=== PATIENT | female | born 1985 | race Caucasian/White ===

== ENCOUNTER 2016-07-16 18:20 | Emergency (ER) | payer OTHER ==
[2016-07-16 18:00] LABS: INFLUENZA A NEG (NEG)
[2016-07-16 18:01] LABS: INFLUENZA B NEG (NEG)
[~2016-07-16 18:20] MED LIST: ABILIFY10 MG PO; AFRIN3 ML INH; ALBUTEROL17 GM; AMOXICILLIN; AMOXICILLIN PO; ANTIVERT PO; AZITHROMYCIN250 MG; BACTRIM DS TABL1 TA1 PO; BENTYL10 M1 PO; BENZONATATE; BP MED; BUSPIRONE HCL10 MG PO; CLONAZEPAM0.5 MG PO; COUGH & CHEST177 ML PO; COZAAR25 MG PO; CYANOCOBALAM1000 MCG PO; FIORICET1 TAB PO; FLONASE16 GM; FLUOXETINE HCL20 M1 PO; GIANVI 3 MG-0.1 EACH PO; HYDROCHLOROTHIA25 MG DOB; HYDROCHLOROTHIA25 MG PO; HYDROCHLOROTHIAZIDE PO; IBUPROFEN PO; IBUPROFEN800 MG PO; KEFLEX500 M2 PO; LEVOTHYROXINE PO; LEVOTHYROXINE300 MCG PO; LIOTHYRONINE S25 MCG PO; LOSARTAN POTASS25 MG PO; MACROBID100 M1; METOPROLOL PO; METOPROLOL SUCC50 MG PO; MULTIPLE VITAMI1 T11 PO; NAPROXEN PO; NAPROXEN SODIU550 MG PO; ONDANSETRON ODT4 MG PO; PANTOPRAZOLE SO40 MG PO; PHENERGAN PO; PHENERGAN25 M1 PO; PRENATAL1 TA1 PO; PRILOSEC20 M1 PO; PROTONIX PO; PROZAC PO; PROZAC40 MG PO; PYRIDIUM PO; REGLAN10 MG PO; ROBAXIN500 MG PO; SEROQUEL PO; SYNTHROID PO; TYLENOL #3 PO; TYLENOL/CODEINE1 TA1 PO; VIIBRYD PO; VITAMIN B-12; VITAMIN D; VITAMIN D31000 UNI1 PO; YASMIN 28 TABLE1 TAB PO; ZOFRAN ODT4 MG PO; ZOFRAN ODT4 MG SL; [UNRECOGNIZED DRUG - OTHER]
[2016-09-02] MEDS ORDERED: NEURONTIN (16:08)
[2016-09-02] MEDS ORDERED: VISTARIL (16:08)
== END 2016-07-16 18:44 | disposition home or self-care (01) ==
LOC: SED 18:20
PROVIDERS: Physician Assistant
DX: B34.9 Viral infection, unspecified (principal); R03.0 Elevated blood-pressure reading, without diagnosis of hypertension; G43.909 Migraine, unspecified, not intractable, without status migrainosus; Z85.850 Personal history of malignant neoplasm of thyroid; Z79.899 Other long term (current) drug therapy
CPT/HCPCS: 87804; 99283

== ENCOUNTER 2016-09-02 16:38 | Emergency (ER) | payer OTHER ==
[~2016-09-02 16:38] MED LIST changes: +NEURONTIN; +VISTARIL
[2016-09-02 16:49] LABS: BASOPHIL% 0.6 % (0-2.5); EOSINOPHIL# 0.1 X10e3 (0-0.7); EOSINOPHIL% 1.4 % (0.0-7.0); HEMOGLOBIN 15.1 gm/dL (12.0-16.0); LYMPHOCYTE# 2.5 X10e3 (1.0-3.5); LYMPHOCYTE% 32.7 % (17.0-45.0); MEAN CELL VOLUME 82.5 FL (83-96); MEAN CORPUSCULAR HEMOGLOBIN 28.3 PG (28-34); MEAN CORPUSCULAR HGB CONC 34.3 g/dL (30-36); MEAN PLATELET VOLUME 8.3 FL (6.5-11.5); MONOCYTE# 0.5 X10e3 (0-1.0); MONOCYTE% 6.4 % (3.0-12.0); NEUTROPHIL# 4.5 X10e3 (1.5-7.1); NEUTROPHIL% 58.9 % (40-75); PLATELET COUNT 402 X10e3 (140-420); RED BLOOD COUNT 5.33 X10e (3.90-5.30); RED CELL DISTRIBUTION WIDTH 13.9 % (11.0-15.5); WHITE BLOOD COUNT 7.7 X10e3 (4.0-10.5)
[2016-09-02 16:53] LABS: DIFF IND NO
[2016-09-02 17:10] LABS: ALBUMIN SERUM 4.7 g/dL (3.5-5.0); BILIRUBIN, DIRECT 0.1 mg/dL (0.0-0.2); BILIRUBIN,INDIRECT 0.5 mg/dL (0.0-0.9); BILIRUBIN,TOTAL 0.6 mg/dL (0.2-2.0); CALCIUM SERUM 9.4 mg/dL (8.4-10.2); GLOM FILT RATE Estimated 75.6 mL/min (>60); PROTEIN TOTAL SERUM 8.3 g/dL (6.0-8.3)
[2016-09-02 17:19] LABS: POTASSIUM 3.2 mmol/L (3.5-5.1)
[2016-09-02 17:43] LABS: URINE APPEARANCE HAZY; URINE BILIRUBIN NEG (NEG); URINE BLOOD 3+ (NEG); URINE COLOR YELLOW; URINE GLUCOSE NEG (NORM); URINE KETONE NEG (NEG); URINE LEUKOCYTE ESTERASE 1+ (NEG); URINE NITRATE NEG (NEG); URINE PROTEIN TRACE (NEG); URINE SPECIFIC GRAVITY 1.015 (1.003-1.035); URINE UROBILINOGEN 0.2 MG/DL (NORM)
[2016-09-02 17:48] LABS: MICRO INDICATED? YES; URINE SOURCE CLEAN CATCH
[2016-09-02 17:49] LABS: CULTURE INDICATED? YES; URINE RBC 50-100 /[HPF] (0-2); URINE WBC 25-50 /[HPF] (0-5)
[2016-09-02 17:50] LABS: URINE AMORPHOUS SEDIMENT AMORP URATES; URINE BACTERIA 2+ (NEG); URINE MUCUS PRESENT; URINE SQUAMOUS EPITHELIAL CELL MODERATE /[HPF]
== END 2016-09-02 18:09 | disposition home or self-care (01) ==
LOC: SED 16:38
PROVIDERS: Emergency Medicine
DX: R10.9 Unspecified abdominal pain (principal); R11.2 Nausea with vomiting, unspecified; I10 Essential (primary) hypertension; Z79.899 Other long term (current) drug therapy
CPT/HCPCS: 36415; 80048; 80076; 81003; 82150; 83690; 84703; 85025; 87086; 96361; 96374; 96375; 99284; J1885; J2405

== ENCOUNTER 2016-09-16 19:33 | Observation (INO) | payer OTHER ==
--- NOTE | ~2016-09-16 | DS ---
Unit #: [id number] #: [id number] Patient: MEY BRICENO [id number] [address] [address] [id number] I MR#: [id number] NAME: MEY BRICENO ROOM: [facility] Age: 31 Sex: F Admission Date: 09/17/2016 : 1985 Discharge Date: 09/17/2016 Attending Physician: Brenda Fry M.D. Primary Care Physician: Antony Suárez M.D. DISCHARGE SUMMARY PRINCIPAL DIAGNOSES 1. Intentional polysubstance overdose and suicide attempt; medications include Neurontin, benzodiazepines, lithium and Atarax. 2. Prolonged Q-T secondary to Neurontin and Atarax overdose. 3. Somnolence, medication induced. 4. Bipolar disorder, primarily depressed. 5. Hypertension. 6. Hypothyroidism, noncompliant with medications. 7. Morbid obesity. 8. Probable obstructive sleep apnea. DIAGNOSTIC STUDIES IMAGING: CT scan of the head without contrast on September 16, 2016 with no acute findings. Chest x-ray on September 16, 2016, again, without acute findings. CLINICAL HISTORY AND HOSPITAL COURSE Ms. Briceno is a 31-year-old female who was transferred from [facility] after somnolence. Patient presented there yesterday after admitting to her mother that she had been taking additional medications because she had been increasingly depressed. However, she was found to be significantly somnolent and was brought to our ER, at which time she was found to have a prolonged Q-T. She was admitted for further evaluation. Patient's medications were held. She was maintained on IV fluids and this morning, while still somewhat somnolent, has been walking to the bathroom and is able to eat. Repeat EKG from this morning is currently pending, but assuming her Q-T prolongation is now discharged to less than 500, I think she can be [facility] with further evaluation of medication dosing for her bipolar at that time. I will note patient's TSH was found to be elevated at approximately 20. However, her mother went home and counted her pills, and it does not appear the patient has been taking her Synthroid for at least the last 2 months. Will continue home dose of Synthroid, and she needs followup TSH in 6 weeks. DISCHARGE CONDITION Stable. DISCHARGE STATUS Discharge to [facility]. Unit #: [id number] #: [id number] Patient: MEY BRICENO DISCHARGE MEDICATIONS 1. Levothyroxine 300 mcg p.o. daily. 2. Protonix 40 mg daily. 3. Hydrochlorothiazide 25 mg daily. 4. Metoprolol succinate 50 mg daily. 5. Potassium chloride 20 mEq p.o. daily. DISCHARGE INSTRUCTIONS Patient was instructed to follow a low-calorie diet. She can increase her activity as tolerated. FOLLOW-UP 1. As an outpatient, patient should follow up with Dr. Suárez upon discharge from [facility]. She needs evaluation for obstructive sleep apnea and repeat TSH in 6 weeks. 2. She will follow up with psychiatry per their recommendations. NOTE: Time spent on discharge - 33 minutes. Dictated by... Brenda Fry M.D. ASHER/shital TD: 09/17/2016 11:27 JOB #: [id number] DISCHARGE SUMMARY Page 1 of 1 X Brenda Fry MD DISCHARGE SUMMARY
--- NOTE | ~2016-09-16 | EKG ---
PATIENT: MEY BRICENO UNIT #: [id number] Ventricular Rate: 91 BPM Atrial Rate: 91 BPM P-R Interval: 134 ms QRS Duration: 104 ms Q-T Interval: 416 ms QTC Calculation(Bezet): 511 ms P [place]: -7 degrees Calculated R [place]: -19 degrees Calculated T [place]: 23 degrees Diagnosis Line: Normal sinus rhythm Diagnosis Line: Nonspecific T wave abnormality Diagnosis Line: Prolonged QT Diagnosis Line: Abnormal ECG Diagnosis Line: When compared with ECG of 13-FEB-2016 23:48, Diagnosis Line: Nonspecific T wave abnormality now evident in Diagnosis Line: Anterior leads Diagnosis Line: Confirmed by SHAMEKA MENDEZ MD ([id number]) on 09/17/2016 Diagnosis Line: 10:39:52 AM INTERPRETING MD: VANESSA KOHLER
--- NOTE | ~2016-09-16 | EKG ---
PATIENT: MEY BRICENO UNIT #: [id number] Ventricular Rate: 92 BPM Atrial Rate: 92 BPM P-R Interval: 140 ms QRS Duration: 96 ms Q-T Interval: 310 ms QTC Calculation(Bezet): 383 ms P [place]: -7 degrees Calculated R [place]: -29 degrees Calculated T [place]: 36 degrees Diagnosis Line: Normal sinus rhythm Diagnosis Line: Nonspecific T wave abnormality Diagnosis Line: Otherwise normal ECG Diagnosis Line: When compared with ECG of 16-SEP-2016 22:55, Diagnosis Line: Nonspecific T wave abnormality now evident in Diagnosis Line: Lateral leads Diagnosis Line: QT has shortened Diagnosis Line: Confirmed by SHAMEKA MENDEZ MD ([id number]) on 09/17/2016 Diagnosis Line: 5:26:53 PM INTERPRETING MD: VANESSA KOHLER
--- NOTE | ~2016-09-16 | BMI ---
[facility] Nutrition Therapy DATE: 09/17/16 Patient: MEY BRICENO Physician: JEREMY Address: [address] [place] [address] Room/Bed: [address] [place] [address], Zip: [place] [address] Admit Date: 09/17/16 Date of : [birth year] Height: 5 7 Weight: 340 154.22 HIGH BMI NOTE: DX: 31 y/o female admitted with overdose ANTHROPOMETRICS: Ht: 67", Wt: 154.2 kg, BMI: 53 (Stage III obese) DIET: Clear liquids INTERVENTION: Restricted diet, meds/fluids per MD RECOMMENDATIONS: Once able advance to healthy heart diet as tolerated to promote a gradual weight loss towards a healthy BMI range. Respectfully, Tracey Sanchez RD, LD Food and Nutritional Services [facility] cc: client file
--- NOTE | ~2016-09-16 | CT71 ---
[facility] A Service [facility] RADIOLOGY TEXT RESULTS PATIENT: MEY BRICENO LOCATION: [facility] [address] : [birth year] UNIT #: [id number] AGE: [address]: Brenda Fry MD SEX: F ORDER DR: [id number] [facility] [address] [facility]. [place], [place] [address] [id number] E MR#: [id number] Acc #: [id number] NAME: MEY BRICENO : 1985 SEX: F STUDY DATE/TIME: 09/16/2016 21:02 UNIT: [facility] ROOM: STUDY DESCRIPTION: CT Head Wo Contrast Attending Physician: Chapo Curran D.O. Ordering Physician: Chapo Curran D.O. Primary Care Physician: Antony Suárez M.D. MEDICAL IMAGING REPORT This report is preliminary unless electronic signature is present EXAM CT head without contrast. INDICATION Headache today. PROCEDURE Unenhanced CT head. COMPARISON 10/21/[address] exam was performed with one or more of the following radiation dose reduction techniques: automatic exposure control, adjustment of mA and/or kV according to patient size, and iterative reconstruction. FINDINGS No acute hemorrhage, abnormal mass effect, extraaxial collection or hydrocephalus. No calvarial fracture, paranasal sinuses, mastoid air cells are clear. IMPRESSION No acute intracranial findings. Dictated by... Fernandez Mello M.D. THIS IS AN ELECTRONICALLY VERIFIED REPORT Fernandez Mello M.D. at 09/17/2016 10:39 AM SUNITHA/lee [facility] A Service [facility] RADIOLOGY TEXT RESULTS PATIENT: MEY BRICENO LOCATION: [facility] 326-01 : [birth year] UNIT #: [id number] AGE: [address]: Brenda Fry MD SEX: F ORDER DR: TD: 09/16/2016 22:02 JOB #: [id number] MEDICAL IMAGING REPORT Page 1 of 1 COPY
--- NOTE | ~2016-09-16 | CR72 ---
[facility] A Service of [facility] RADIOLOGY TEXT RESULTS PATIENT: MEY BRICENO LOCATION: [facility] : [birth year] UNIT #: [id number] AGE: [address]: Chapo Curran DO SEX: F ORDER DR: [id number] [facility] [address] [place], [place] [address] [id number] E MR#: [id number] Acc #: [id number] NAME: MEY BRICENO : 1985 SEX: F STUDY DATE/TIME: 09/16/2016 20:13 UNIT: [facility] ROOM: STUDY DESCRIPTION: CR Chest Single View Portable Attending Physician: Chapo Curran D.O. Ordering Physician: Ed Geo Orellana M.D. Primary Care Physician: Antony Suárez M.D. MEDICAL IMAGING REPORT This report is preliminary unless electronic signature is present EXAM Single view chest. INDICATIONS Overdose. Chest pain and headache. FINDINGS Single portable AP view of the chest compared to 11/14/2015. The heart and mediastinal contours normal. Lungs are clear. No pleural effusion. IMPRESSION No acute cardiopulmonary findings. Dictated by... Isra Garces M.D. THIS IS AN ELECTRONICALLY VERIFIED REPORT Isra Garces M.D. at 09/16/2016 9:47 PM ZAK/lee TD: 09/16/2016 21:15 JOB #: [id number] MEDICAL IMAGING REPORT Page 1 of 1 COPY
--- NOTE | ~2016-09-16 | HP ---
Unit #: [id number] #: [id number] Patient: MEY BRICENO [id number] [address] [address] [id number] I MR#: [id number] NAME: MEY BRICENO ROOM: [address] Age: 31 Sex: F Admission Date: 09/17/2016 : 1985 Attending Physician: Suzanne Castellon M.D. Primary Care Physician: Antony Suárez M.D. HISTORY AND PHYSICAL CHIEF COMPLAINT Intentional Neurontin and Atarax overdose. HISTORY This pleasant 31-year-old female with bipolar disorder, hypertension, hypothyroidism, is admitted following and overdose. The patient has been increasingly depressed. Her mother took her over to [facility] yesterday. The patient admitted to taking ten Neurontin 800 mg, ten Atarax 50 mg, and two extra lithium tablets. She was, therefore, sent to this facility where she is a bit somnolent, feeling somewhat nauseous and vertiginous. She also took 28 tablets of Klonopin over six days, 0.5 mg each. In our ER, she was bolused with saline, and referred for admission. She is on a 72 hour hold. EKG does show a prolonged QT interval. PAST MEDICAL HISTORY 1. Admission 02/2016 for intentional Klonopin and Abilify overdose. 2. Bipolar disorder. 3. Thyroid cancer and goiter, status post thyroidectomy. 4. Essential hypertension. 5. . 6. Tonsillectomy. 7. Lap band. ALLERGIES No known drug allergies. HOME MEDICATIONS 1. Hydrochlorothiazide 25 mg daily. 2. Klonopin 0.5 mg b.i.d. 3. Neurontin 800 mg q.i.d. 4. Toprol XL 50 mg daily. 5. [place] 150 mg t.i.d. 6. Klonopin 0.5 mg b.i.d. 7. Synthroid 0.3 mg daily. 8. Protonix 40 mg daily. 9. Losartan 25 mg daily. 10. Seroquel 200 mg in the morning and 400 mg in the evening. 11. Atarax 50 mg. FAMILY HISTORY Bipolar disorder and suicide. Unit #: [id number] #: [id number] Patient: MEY BRICENO SOCIAL HISTORY The patient is living with her grandmother. She is a lifelong nonsmoker, does not drink alcohol or use illicit drugs. Denies any possibility of . REVIEW OF SYSTEMS Notable for overdose, thyroid cancer, hypertension, bipolar disorder, above mentioned surgeries. All other systems were reviewed and otherwise negative. PHYSICAL EXAMINATION GENERAL APPEARANCE: Pleasant, obese, 31-year-old female, currently in no acute distress. Mildly somnolent. VITAL SIGNS: Temperature 97.6, pulse 105, respirations 19, blood pressure 112/93. O2 saturation is 97% on room air. HEENT: Eyes PERRLA. Extraocular muscles are intact. Pharynx is benign. NECK: Supple without adenopathy or thyromegaly. CHEST: Clear. CARDIAC: Normal S1 and S2 without S3, S4 or murmur. ABDOMEN: Bowel sounds are present. Nontender. There is a lap band in the epigastric region. Otherwise, no masses. No hepatosplenomegaly. EXTREMITIES: Without clubbing, cyanosis or edema. Pedal pulses are present. NEUROLOGIC: The patient is somnolent but arousable. Cranial nerves are intact. She has equal strength throughout. She is non-tremulous. DIAGNOSTIC STUDIES LABORATORY: Hematocrit 38.3, normal white count and platelet count. SMA-12 - normal. Acetaminophen, salicylate and alcohol levels are negligible. Urine tox screen positive for TCAs. IMAGING: Head CT - no acute disease. Chest x-ray - no acute disease. CARDIOVASCULAR: EKG - sinus rhythm, rate 100 with a prolonged QT interval. Nonspecific ST wave abnormalities. ASSESSMENT 1. Intentional overdose with Neurontin, Atarax and two extra lithium: QT interval is prolonged. Patient is somnolent. 2. Bipolar disorder: Patient is depressed. 3. Hypertension. 4. Hypothyroidism, status post thyroidectomy for thyroid cancer. PLANS 1. Hold sedating medicines. 2. Check lithium level. 3. IV fluids. 4. Recheck labs and EKG in the morning. 5. 72 hour hold. 6. Obtain TSH. 7. SCDs for DVT prophylaxis. 8. Transfer to [facility] when stable. Unit #: [id number] #: [id number] Patient: MEY BRICENO Dictated by Suzanne Castellon M.D. AML/df TD: 09/17/2016 05:00 JOB #: [id number] CC: Clifton Villarreal M.D. HISTORY AND PHYSICAL Page 1 of 1 X Suzanne Castellon MD X HISTORY AND PHYSICAL
--- NOTE | ~2016-09-16 | EKG ---
PATIENT: MEY BRICENO UNIT #: [id number] Ventricular Rate: 100 BPM Atrial Rate: 100 BPM P-R Interval: 132 ms QRS Duration: 98 ms Q-T Interval: 404 ms QTC Calculation(Bezet): 521 ms P [place]: -4 degrees Calculated R [place]: -22 degrees Calculated T [place]: 26 degrees Diagnosis Line: Normal sinus rhythm Diagnosis Line: Prolonged QT Diagnosis Line: Abnormal ECG Diagnosis Line: When compared with ECG of 16-SEP-2016 20:40, Diagnosis Line: (unconfirmed) Diagnosis Line: No significant change was found Diagnosis Line: Confirmed by SHAMEKA MENDEZ MD ([id number]) on 09/17/2016 Diagnosis Line: 10:40:40 AM INTERPRETING MD: VANESSA KOHLER
[2016-09-16 20:21] LABS: AMPHETAMINE NEG (NEG); BARBITURATES NEG (NEG); BENZODIAZEPINES NEG (NEG); COCAINE NEG (NEG); MARIJUANA NEG (NEG); OPIATES NEG (NEG); TRICYCLIC ANTIDEPRESSANTS POS (NEG); U METHADONE NEG (NEG)
[2016-09-16 20:51] LABS: BASOPHIL% 0.2 % (0-2.5); EOSINOPHIL# 0.3 X10e3 (0-0.7); EOSINOPHIL% 3.8 % (0.0-7.0); HEMATOCRIT 38.3 % (35.0-45.0); HEMOGLOBIN 12.7 gm/dL (12.0-16.0); MEAN CELL VOLUME 83.3 FL (83-96); MEAN CORPUSCULAR HEMOGLOBIN 27.6 PG (28-34); MEAN CORPUSCULAR HGB CONC 33.1 g/dL (30-36); MEAN PLATELET VOLUME 8.5 FL (6.5-11.5); MONOCYTE# 0.6 X10e3 (0-1.0); MONOCYTE% 7.5 % (3.0-12.0); NEUTROPHIL# 3.8 X10e3 (1.5-7.1); NEUTROPHIL% 49.5 % (40-75); PLATELET COUNT 312 X10e3 (140-420); WHITE BLOOD COUNT 7.7 X10e3 (4.0-10.5)
[2016-09-16 20:59] LABS: DIFF IND NO
[2016-09-16 21:12] LABS: ALBUMIN SERUM 3.9 g/dL (3.5-5.0); ALKALINE PHOSPHATASE 53 U/L (32-92); ALT (SGPT) 32 U/L (10-40); AST (SGOT) 21 U/L (10-42); BILIRUBIN, DIRECT 0.1 mg/dL (0.0-0.2); BILIRUBIN,INDIRECT 0.3 mg/dL (0.0-0.9); BILIRUBIN,TOTAL 0.4 mg/dL (0.2-2.0); BLOOD UREA NITROGEN 12 mg/dL (9-23); CALCIUM SERUM 9.1 mg/dL (8.4-10.2); CARBON DIOXIDE 30 mmol/L (22-31); CHLORIDE 103 mmol/L (100-111); GLOM FILT RATE Estimated 75.6 mL/min (>60); GLUCOSE FASTING 101 mg/dL (70-110); PROTEIN TOTAL SERUM 6.9 g/dL (6.0-8.3); SALICYLATE <4.0 mg/dL; SODIUM 140 mmol/L (135-145)
[2016-09-16 21:13] LABS: ACETAMINOPHEN <10 ug/mL; ALCOHOL BLOOD <5 mg/dL (0)
[2016-09-16 21:57] LABS: POC - CKMB <1.0 ng/mL (0.0-7.9); POC - TROPONIN <0.05 ng/mL (<=0.05)
[2016-09-17] MEDS ORDERED: NEURONTIN800 MG PO (00:56)
[2016-09-17] MEDS ORDERED: LITHIUM CARBON150 MG PO (00:57)
[2016-09-17] MEDS ORDERED: TOPROL XL50 MG PO (00:57)
[2016-09-17] MEDS ORDERED: KLONOPIN0.5 MG PO (00:58)
[2016-09-17] MEDS ORDERED: SEROQUEL XR200 MG PO (00:58)
[2016-09-17] MEDS ORDERED: PROTONIX PO (00:58)
[2016-09-17] MEDS ORDERED: SYNTHROID300 MCG PO (00:58)
[2016-09-17] MEDS ORDERED: POTASSIUM CHLO10 ME1 PO (00:59)
[2016-09-17] MEDS ORDERED: SEROQUEL400 MG PO (00:59)
[2016-09-17] MEDS ORDERED: HYDROCHLOROTHIA25 MG PO (00:59)
[2016-09-17 01:55] LABS: BASOPHIL# 0.1 X10e3 (0-0.3); BASOPHIL% 1.2 % (0-2.5); EOSINOPHIL# 0.2 X10e3 (0-0.7); EOSINOPHIL% 2.8 % (0.0-7.0); HEMATOCRIT 38.6 % (35.0-45.0); HEMOGLOBIN 12.9 gm/dL (12.0-16.0); LYMPHOCYTE# 2.9 X10e3 (1.0-3.5); LYMPHOCYTE% 32.8 % (17.0-45.0); MEAN CELL VOLUME 83.7 FL (83-96); MEAN CORPUSCULAR HGB CONC 33.4 g/dL (30-36); MEAN PLATELET VOLUME 8.2 FL (6.5-11.5); MONOCYTE# 0.5 X10e3 (0-1.0); MONOCYTE% 5.9 % (3.0-12.0); NEUTROPHIL# 5.1 X10e3 (1.5-7.1); NEUTROPHIL% 57.3 % (40-75); PLATELET COUNT 305 X10e3 (140-420); RED CELL DISTRIBUTION WIDTH 13.8 % (11.0-15.5); WHITE BLOOD COUNT 8.9 X10e3 (4.0-10.5)
[2016-09-17 01:56] LABS: DIFF IND NO
[2016-09-17 02:36] LABS: POC - CKMB <1.0 ng/mL (0.0-7.9); POC - TROPONIN <0.05 ng/mL (<=0.05)
[2016-09-17 02:48] LABS: ALBUMIN SERUM 3.8 g/dL (3.5-5.0); BILIRUBIN,TOTAL 0.8 mg/dL (0.2-2.0); BUN/CREATININE RATIO 11.81; CALCIUM SERUM 8.9 mg/dL (8.4-10.2); CREATININE SERUM 1.1 mg/dL (0.6-1.4); GLOM FILT RATE Estimated 67.3 mL/min (>60); POTASSIUM 3.7 mmol/L (3.5-5.1); PROTEIN TOTAL SERUM 6.9 g/dL (6.0-8.3)
== END 2016-09-17 18:26 ==
LOC: CED 19:33 → C3A PCU 09-17 → CEDOF 09-17 → C3A PCU 09-17 07:54 → CEDOF 09-17 07:54 → C3A PCU 09-17 08:50
PROVIDERS: Emergency Medicine; Internal Medicine
DX: T43.592A Poisoning by other antipsychotics and neuroleptics, intentional self-harm, initial encounter (principal); T42.6X2A Poisoning by other antiepileptic and sedative-hypnotic drugs, intentional self-harm, initial encounter; T42.4X2A Poisoning by benzodiazepines, intentional self-harm, initial encounter; I45.81 Long QT syndrome; F31.30 Bipolar disorder, current episode depressed, mild or moderate severity, unspecified; E89.0 Postprocedural hypothyroidism; Z85.850 Personal history of malignant neoplasm of thyroid; I10 Essential (primary) hypertension; E66.01 Morbid (severe) obesity due to excess calories; Z91.14 Patient's other noncompliance with medication regimen; Z98.84 Bariatric surgery status; Z81.8 Family history of other mental and behavioral disorders
CPT/HCPCS: 70450; 71010; 80048; 80053; 80076; 80178; 80307; 82553; 82947; 84443; 84484; 84703; 85025; 93005; 99285; G0378; G0480

== ENCOUNTER 2016-09-17 13:00 | Inpatient (IN) | payer OTHER ==
--- NOTE | ~2016-09-17 | PN ---
Unit #: [id number] #: [id number] Patient: MEY BRICENO [id number] [facility] [address] [place] [address] [id number] I MR#: [id number] NAME: MEY BRICENO ROOM: [facility] Age: 31 Sex: F Admission Date: 09/17/2016 : 1985 Attending Physician: Reji Guzman M.D. Admitting Physician: Reji Guzman M.D. Primary Care Physician: Tung Alston PROGRESS NOTES DATE OF SERVICE: 09/19/2016 DISCUSSION Ms. Mey Briceno is a 31-year-old female, seen on 09/19/2016. The patient interviewed, chart reviewed, and obtained information from nursing staff. The patient is seclusive, isolative, flat affect, guarded, still reporting feeling sad and depressed. The patient denied any side effects from medication. Complete review of systems unremarkable. MENTAL STATUS EXAMINATION General appearance, the patient dressed casually. Attention span and concentration, fair. Oriented in place and person. Mood and affect, labile. Speech, monotone. Thought process, concrete. The patient reported having passive SI. Denied any homicidal ideations or psychotic symptom. Recent and remote memory, poor. Insight and judgment, poor. DIAGNOSIS Major depressive disorder, recurrent. ASSESSMENT AND PLAN Advised to continue with current medication and therapeutic protocol. If needed, consider further adjustment of medication. Dictated by... Tung Gonzalez/jorje TD: 09/20/2016 23:32 JOB #: [id number] [facility] PROGRESS NOTES Page 1 of 1 X Reji Guzman MD PROGRESS NOTE
--- NOTE | ~2016-09-17 | DS ---
Unit #: [id number] #: [id number] Patient: MEY BRICENO [id number] [facility] [place] [address] [id number] I MR#: [id number] NAME: MEY BRICENO ROOM: [facility] Age: 31 Sex: F Admission Date: 09/17/2016 : 1985 Discharge Date: 09/21/2016 Attending Physician: Reji Guzman M.D. Primary Care Physician: Antony Suárez M.D. DISCHARGE SUMMARY REASON FOR ADMISSION Detox and depression. DIAGNOSTIC STUDIES LABORATORY RESULTS: Unremarkable. HOSPITAL COURSE The patient was admitted to inpatient unit on 09/17/2016 and discharged on 09/21/2016. The patient was treated on the inpatient unit with medication management, psychotherapy, and structured milieu. The patient responded well with the above modalities of treatment. The patient was taken off from all her previous medication and treated with Wellbutrin. The patient was subsequently discharged with a plan to follow up in [facility] level of care. DISCHARGE MEDICATIONS Wellbutrin XL 150 mg in the morning for depression. The patient was advised to continue with her Synthroid 0.3 mg daily for hypothyroidism, [place]-Con M20 20 mEq in the morning for potassium supplement, Protonix 40 mg daily for GERD symptom, hydrochlorothiazide 25 mg daily for hypertension, Toprol-XL 50 mg daily for hypertension. DISCHARGE DIAGNOSES Psychiatric: Bipolar mood disorder, not otherwise specified, F31.89; anxiety disorder, not otherwise specified, 41.9. Secondary diagnosis: Deferred. Medical diagnoses: Morbid obesity; history of thyroid cancer, status post thyroidectomy; hypertension; status post Lap-Band surgery. Stressors: Psychosocial stressor. DISCHARGE INSTRUCTIONS The patient to follow up in outpatient clinic as per social science professor. CONDITION ON DISCHARGE The patient was pleasant and cooperative. Denied any psychotic symptom or any suicidal ideation. PROGNOSIS Guarded. DIET AND ACTIVITY Unit #: [id number] #: [id number] Patient: MEY BRICENO As tolerated. Dictated by... Reji Guzman M.D. SZC/jorje TD: 09/21/2016 18:06 JOB #: [id number] DISCHARGE SUMMARY Page 1 of 1 X Reji Guzman MD DISCHARGE SUMMARY
--- NOTE | ~2016-09-17 | PN ---
Unit #: [id number] #: [id number] Patient: MEY BRICENO [id number] [facility] [address] [place] [address] [id number] I MR#: [id number] NAME: MEY BRICENO ROOM: [facility] Age: 31 Sex: F Admission Date: 09/17/2016 : 1985 Attending Physician: Reji Guzman M.D. Admitting Physician: Reji Guzman M.D. Primary Care Physician: Tung Alston PROGRESS NOTES DATE OF SERVICE: 09/20/2016 DISCUSSION Ms. Macdonald is a 31-year-old female, seen on 09/20/2016. The patient interviewed, chart reviewed, and obtained information from nursing staff. The patient reported feeling sad and dysphoric, but denied any suicidal or homicidal ideation. Able to participate in group. Able to interact with peer. The patient reported that she did better on Wellbutrin. REVIEW OF SYSTEMS Complete review of systems unremarkable. MENTAL STATUS EXAMINATION General appearance, the patient moderately obese, dressed casually. Attention span and concentration, fair. Oriented in place and person. Mood and affect, labile. Speech, monotone. Thought process, concrete. The patient denied any thoughts of harming self or others. Denied any psychotic symptom. Recent and remote memory, fair to poor. Insight and judgment, fair to poor. DIAGNOSIS Major depressive disorder, recurrent. ASSESSMENT AND PLAN Advised to start the patient on Wellbutrin XL 150 mg in the morning and advised to discontinue Neurontin, Seroquel, and Klonopin. The patient to consider discharging next week and follow up in outpatient program. Dictated by... Tung Gonzalez/jorje TD: 09/21/2016 00:04 JOB #: [id number] Unit #: [id number] #: [id number] Patient: MEY BRICENO PROGRESS NOTES Page 1 of 1 X Reji Guzman MD X PROGRESS NOTE
--- NOTE | ~2016-09-17 | HP ---
Unit #: [id number] #: [id number] Patient: MEY BRICENO [id number] [facility] [address] [place] [address] [id number] MR#: [id number] NAME: MEY BRICENO ROOM: P263 Age: 31 Sex: F Admission Date: 09/17/2016 : 1985 Attending Physician: Reji Guzman M.D. Admitting Physician: Reji Guzman M.D. Primary Care Physician: Antony Suárez M.D. HISTORY AND PHYSICAL HISTORY OF PRESENT ILLNESS The patient is a 31-year-old female who has been admitted to [facility] for suicidal ideation. She has had multiple admissions to this facility for the same. PAST MEDICAL HISTORY 1. Hypothyroidism. 2. Hypertension. 3. Obesity. 4. Asthma. PAST SURGICAL HISTORY 1. Thyroidectomy. 2. . 3. Tonsillectomy. 4. Lap-Band surgery. ALLERGIES No known drug allergies. SOCIAL HISTORY Patient lives with her family. She endorses drinking 1 to 2 beers per weekend, uses marijuana occasionally. FAMILY HISTORY Medically noncontributory. REVIEW OF SYSTEMS CONSTITUTIONAL: No fever or chills. HEENT: Denies sore throat, ear pain or runny nose. CARDIOVASCULAR: Denies chest pain, irregular heart rhythm or palpitations. CHEST: Denies shortness of breath or cough. No hemoptysis. GASTROINTESTINAL: Denies nausea, vomiting, diarrhea or chronic constipation. ENDOCRINE: Denies history of increased thirst or urination. No recent significant weight loss. GENITOURINARY: Denies dysuria, frequency, or hematuria. SKIN: Denies rashes. HEMATOLOGIC: Denies history of increased bleeding or bruising. MUSCULOSKELETAL: Denies any hot, swollen joints. No generalized muscle pain. NEUROLOGIC: Denies problems with speech or vision. No frequent, severe headaches. No numbness, tingling or weakness in any extremities. Denies Unit #: [id number] #: [id number] Patient: MEY BRICENO loss of bowel or bladder control. CURRENT MEDICATIONS 1. Metoprolol succinate 50 mg p.o. daily. 2. Hydrochlorothiazide 25 mg p.o. daily. 3. Protonix 40 mg p.o. daily. 4. Potassium 20 mEq p.o. daily. 5. Synthroid 300 mcg p.o. daily. 6. Neurontin 800 mg p.o. 4 times daily[address] [place] 150 mg p.o. t.i.d. 8. Seroquel XR 200 mg p.o. daily. 9. Seroquel 400 mg p.o. at night. 10. Klonopin 0.5 mg p.o. b.i.d. PHYSICAL EXAMINATION GENERAL: Patient is awake, alert in no acute distress. VITAL SIGNS: Temperature 98.6, heart rate 112, respirations 20, blood pressure 156/95. HEENT: Atraumatic, normocephalic. Pupils equal, round and reactive. Extraocular movements are intact. No drainage from ears or nares. NECK: Supple. Trachea is midline. HEART: Regular rate and rhythm. LUNGS: Clear. ABDOMEN: Soft, nontender, nondistended. : Not done. SKIN: Warm, dry, no unusual rashes or lesions. EXTREMITIES: No clubbing, edema or cyanosis. NEUROLOGICAL: Within normal limits. Cranial nerves II through XII intact. No focal deficits. Sensory and motor function grossly normal. Moves all extremities well. Coordination: Gait normal. Deep Tendon Reflexes: Intact. IMPRESSION Psychiatric admission. RECOMMENDATIONS PSYCHIATRIC: Per psychiatrist. MEDICAL: 1. High blood pressure. Continue home medications. 2. Hypothyroidism. Continue home medications. 3. I see no contraindication to participate in facility's activities. MEDICAL PROGNOSIS Fair. MEDICAL CONDITION Stable. Dictated by... Valerie Rojas A.P.R.N. AM/ace TD: 09/18/2016 15:48 Unit #: [id number] #: [id number] Patient: MEY BRICENO JOB #: [id number] HISTORY AND PHYSICAL Page 1 of 1 X Valerie Rojas APRN X HISTORY AND PHYSICAL
--- NOTE | ~2016-09-17 | PN ---
Unit #: [id number] #: [id number] Patient: MEY BRICENO [id number] [facility] [address] [place] [address] [id number] I MR#: [id number] NAME: MEY BRICENO ROOM: [facility] Age: 31 Sex: F Admission Date: 09/17/2016 : 1985 Attending Physician: Reji Guzman M.D. Admitting Physician: Reji Guzman M.D. Primary Care Physician: Tung Alston PROGRESS NOTES DATE OF SERVICE: 09/18/2016 DISCUSSION Mey Briceno is a 31-year-old female, seen on 09/18/2016. The patient interviewed, chart reviewed, and obtained information from nursing staff. The patient's mood sad, depressed, withdrawn, isolative, flat affect. The patient reports that she was abusing her medication and would like to try a medication for mood stabilization. The patient denied any other complaints. Able to participate in the program. REVIEW OF SYSTEMS Complete review of systems unremarkable. MENTAL STATUS EXAMINATION General appearance, the patient dressed casually. Morbidly obese. Attention span and concentration, fair. Oriented in place and person. Mood and affect, labile. Speech, monotone. Thought process, concrete. The patient denied any thoughts of harming self or others. Recent and remote memory, poor. Insight and judgment, poor. DIAGNOSIS Bipolar mood disorder, not otherwise specified. ASSESSMENT AND PLAN Advised to continue with current medication and therapeutic protocol. If needed, consider further adjustment of medication. Plan to consider medication for mood stabilization. Dictated by... Tung Gonzalez/jorje TD: 09/18/2016 15:05 JOB #: [id number] Unit #: [id number] #: [id number] Patient: MEY BRICENOSESAR PROGRESS NOTES Page 1 of 1 X Reji Guzman MD PROGRESS NOTE
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
[~2016-09-17 13:00] MED LIST changes: +KLONOPIN0.5 MG PO; +LITHIUM CARBON150 MG PO; +NEURONTIN800 MG PO; +POTASSIUM CHLO10 ME1 PO; +SEROQUEL XR200 MG PO; +SEROQUEL400 MG PO; +SYNTHROID300 MCG PO; +TOPROL XL50 MG PO
== END 2016-09-21 12:30 | disposition home or self-care (01) | DRG 885 ==
LOC: P2L 19:25
PROC: HZ2ZZZZ Detoxification Services for Substance Abuse Treatment (ICD-10-PCS; principal; 2016-09-18)
DX: F31.89 Other bipolar disorder (principal); E66.01 Morbid (severe) obesity due to excess calories; I10 Essential (primary) hypertension; F41.9 Anxiety disorder, unspecified; Z98.84 Bariatric surgery status; Z85.850 Personal history of malignant neoplasm of thyroid
CPT/HCPCS: 80178